=== PATIENT | male | born 1970 | race Asian ===

== ENCOUNTER → 2016-10-21 | Outpatient (CLI) | payer OTHER | END | disposition home or self-care (01) | LOC: RADPV 13:26 | PROVIDERS: ATTEND Legal Medicine | DX: N50.3 Cyst of epididymis (principal); E29.0 Testicular hyperfunction; N43.41 Spermatocele of epididymis, single; I86.1 Scrotal varices | CPT/HCPCS: 76870 ==

== ENCOUNTER → 2016-11-26 | Outpatient (CLI) | payer OTHER | END | disposition home or self-care (01) | LOC: RADPV 13:00 | PROVIDERS: ATTEND Urology | DX: I86.1 Scrotal varices (principal) | CPT/HCPCS: 76870 ==

== ENCOUNTER → 2023-11-18 | Outpatient (CLI) | payer OTHER | END | disposition home or self-care (01) | LOC: RADPV 11:18 | PROVIDERS: ATTEND Legal Medicine | DX: R22.0 Localized swelling, mass and lump, head (principal) | CPT/HCPCS: 76506; 76999 ==